=== PATIENT | male | born 1985 | race Two or more races ===

== ENCOUNTER 2018-06-09 13:19 | Day surgery (SDC) | payer OTHER ==
[2018-06-09] MEDS ORDERED: BUPIVACAINE HCL 50 ML ONE (15:05)
[2018-06-09] MEDS ORDERED: ONDANSETRON HCL 4 MG/2 ML VIAL IV ONE (15:15)
[2018-06-09] MEDS ORDERED: ePHEDrine SULFATE 50 MG/ML AMP IV PRN (15:15)
[2018-06-09] MEDS ORDERED: hydrALAZINE HCL 20 MG/ML VL IV PRN (15:15)
[2018-06-09] MEDS ORDERED: fentaNYL CITRATE 100 MCG/2 ML VL IV PRN (15:15)
[2018-06-09] MEDS ORDERED: fentaNYL CITRATE 100 MCG/2 ML VL ONE (15:30)
[2018-06-09] MEDS ORDERED: PROPOFOL 10 MG/ML 20 ML IV ONE (15:30)
[2018-06-09 16:32] VITALS: BP 152/98
== END 2018-06-09 16:54 | disposition other institution (70) ==
LOC: SUR 13:19
PROVIDERS: ATTEND Podiatrist
DX: M86.171 Other acute osteomyelitis, right ankle and foot (principal); Z88.0 Allergy status to penicillin
CPT/HCPCS: 28820; 82962; 88304; 88311; J2704; J3010; J3490; J7030